=== PATIENT | female | born 1950 | race Native Hawaiian/Other Pacific Islander ===

== ENCOUNTER 2017-09-19 13:55 | Outpatient (CLI) | payer OTHER, MEDICARE | END 2017-09-19 19:00 | disposition home or self-care (01) | LOC: MAMMO 13:55 | DX: Z12.31 Encounter for screening mammogram for malignant neoplasm of breast (principal) ==

== ENCOUNTER 2017-10-09 10:21 | Outpatient (CLI) | payer OTHER, MEDICARE | END 2017-10-09 22:01 | disposition home or self-care (01) | LOC: MAMMO 10:21 | DX: R92.8 Other abnormal and inconclusive findings on diagnostic imaging of breast (principal) ==

== ENCOUNTER 2018-10-13 09:58 | Outpatient (CLI) | payer OTHER, MEDICARE | END 2018-10-13 23:42 | disposition home or self-care (01) | LOC: MAMMO 09:58 | DX: Z12.31 Encounter for screening mammogram for malignant neoplasm of breast (principal) ==

== ENCOUNTER 2018-11-03 10:06 | Outpatient (CLI) | payer OTHER, MEDICARE | END 2018-11-03 19:46 | disposition home or self-care (01) | LOC: MAMMO 10:06 | DX: R92.8 Other abnormal and inconclusive findings on diagnostic imaging of breast (principal) ==

== ENCOUNTER 2021-01-12 07:51 | Outpatient (CLI) | payer OTHER, MEDICARE | END 2021-01-12 19:17 | disposition home or self-care (01) | LOC: RAD 07:51 | PROVIDERS: ATTEND Registered Nurse | DX: Z13.820 Encounter for screening for osteoporosis (principal); N95.8 Other specified menopausal and perimenopausal disorders ==

== ENCOUNTER 2022-07-24 08:51 | Outpatient (CLI) | payer OTHER, MEDICARE | END 2022-07-24 18:57 | disposition home or self-care (01) | LOC: RESP 08:51 | PROVIDERS: ATTEND Physician Assistant | DX: R01.1 Cardiac murmur, unspecified (principal); R09.89 Other specified symptoms and signs involving the circulatory and respiratory systems ==

== ENCOUNTER 2023-01-14 12:47 | Outpatient (CLI) | payer OTHER, MEDICARE | END 2023-01-14 21:00 | disposition home or self-care (01) | LOC: RAD 12:47 | PROVIDERS: ATTEND Physician Assistant | DX: Z13.820 Encounter for screening for osteoporosis (principal); N95.8 Other specified menopausal and perimenopausal disorders ==